=== PATIENT | female | born 1995 | race Two or more races ===

== ENCOUNTER 2017-01-11 09:03 | Day surgery (SDC) | payer BC ==
[~2017-01-11] VITALS: Ht 152.4 cm; Wt 52.0 kg
[~2017-01-11 09:03] MED LIST: ALBUTEROL17 G1 IH; CLARITIN PO; DEPO-PROVER150 MG/ML IM; FLOVENT 11120 INHALA IH; FOCALIN XR20 MG PO; MOTRIN600 MG PO; ORTHO-CYCLEN1 EACH PO; PROVENTIL,2.5 MG/0.5 IH; VENTOLIN HFA18 GM IH; ZOFRAN ODT4 MG PO; predniSONE PO
[2017-01-11 09:24] VITALS: BP 120/78
[2017-01-11] MEDS ORDERED: PERCOCET 5/31 TABLET PO (12:24)
[2017-01-11 13:10] VITALS: BP 123/84
[2017-01-11 14:15] VITALS: BP 117/71
== END 2017-01-11 14:15 | disposition home or self-care (01) ==
LOC: SDC 09:03
PROC: 0FT44ZZ Resection of Gallbladder, Percutaneous Endoscopic Approach (ICD-10-PCS; principal; 2017-01-11)
DX: K81.1 Chronic cholecystitis (principal); J45.909 Unspecified asthma, uncomplicated; F90.1 Attention-deficit hyperactivity disorder, predominantly hyperactive type; Z87.891 Personal history of nicotine dependence; Z88.0 Allergy status to penicillin
CPT/HCPCS: 88304; J0330; J0690; J1100; J1170; J1885; J2250; J2405; J2710; J3010

== ENCOUNTER 2017-05-16 08:39 | Emergency (ER) | payer BC ==
[~2017-05-16] VITALS: Ht 152.4 cm; Wt 51.6 kg
[~2017-05-16 08:39] MED LIST changes: +PERCOCET 5/31 TABLET PO
[2017-05-16 09:21] LABS: ADD MIUA? YES; BILIRUBIN NEGATIVE; BLOOD LARGE; COLOR YELLOW ((YELLOW)); GLUCOSE (STRIP) NEGATIVE; KETONES 5; LEUKOCYTES NEGATIVE; NITRITE NEGATIVE; PROTEIN (STRIP) 100; UROBILINOGEN 0.2 MG/DL (0.2-1.0)
[2017-05-16 09:44] LABS: BACTERIA NONE SEEN /HPF; EPITHELIAL CELLS 1+ /HPF; MUCUS 1+ /LPF; RED BLOOD CELLS TNTC /HPF (0-5); WHITE BLOOD CELLS RARE /HPF (0-5)
[2017-05-16 09:49] LABS: EOSINOPHIL (%) 0.6 % (0-5); EOSINOPHIL COUNT 0.1 K/uL (0-0.3); HEMATOCRIT 39.4 % (36.0-46.0); IMMATURE GRANULOCYTE (%) 0.6 % (0.0-0.7); IMMATURE GRANULOCYTE COUNT 0.1 K/uL; INSTRUMENT ABS NEUTROPHIL CT 9.6 K/uL; LYMPHOCYTE COUNT 1.4 K/uL (1.0-2.8); MCH 30.2 PG (29.0-34.0); MCHC 33.8 G/DL (30.0-36.0); MCV 89.3 FL (83-99); MEAN PLAT.VOLUME 11.7 uM^3 (9.5-12.4); MONOCYTE (%) 3.9 % (3-12); MONOCYTE COUNT 0.5 K/uL (0-0.8); NEUTROPHIL (%) 82.3 % (45-76); NEUTROPHIL COUNT 9.6 K/uL (1.8-6.4); PLATELET COUNT 171 K/uL (156-360); RBC DIS.WIDTH-CV 11.9 % (11.8-14.6); RED BLOOD COUNT 4.41 M/uL (3.80-5.20); WHITE BLOOD COUNT 11.7 K/uL (4.1-10.2)
[2017-05-16 09:58] LABS: CHLORIDE 110 mEq/L (99-109); POTASSIUM 3.4 mEq/L (3.7-5.4); SODIUM 143 mEq/L (136-147)
[2017-05-16 10:00] LABS: GLUCOSE 93 mg/dL (70-99)
[2017-05-16 10:01] LABS: ANION GAP 13 MEQ/L (2-14)
[2017-05-16 10:02] LABS: TOTAL BILIRUBIN 0.6 mg/dL (0.0-1.0)
[2017-05-16 10:04] LABS: ALKALINE PHOSPHATASE 43 IU/L (3-129); GFR ESTIMATE (CALCULATED) > 59 mL/min/
[2017-05-16 10:05] LABS: UREA NITROGEN (BUN) 12 mg/dL (9-23)
[2017-05-16 10:07] LABS: LIPASE 14 U/L (1.0-51.0)
[2017-05-16 10:14] LABS: QUANTITATIVE HCG < 4.0 MIU/ML
[2017-05-16] MEDS ORDERED: PERCOCET 5/31 TABLET PO (12:13)
[2017-05-16] MEDS ORDERED: ZOFRAN4 MG PO (12:13)
[2017-05-16 12:26] VITALS: BP 112/72
== END 2017-05-16 12:27 | disposition home or self-care (01) ==
LOC: EME 08:39
PROVIDERS: Emergency Medicine
DX: R10.9 Unspecified abdominal pain (principal); R11.2 Nausea with vomiting, unspecified; F90.9 Attention-deficit hyperactivity disorder, unspecified type; Z90.49 Acquired absence of other specified parts of digestive tract; Z88.0 Allergy status to penicillin; Z88.8 Allergy status to other drugs, medicaments and biological substances; Z87.891 Personal history of nicotine dependence
CPT/HCPCS: 74176; 80053; 81003; 83690; 84702; 85025; 99281; 99285; J2270; J2405; J7030

== ENCOUNTER 2017-06-26 11:22 | Emergency (ER) | payer BC ==
[~2017-06-26] VITALS: Ht 157.5 cm; Wt 53.5 kg
[~2017-06-26 11:22] MED LIST changes: +ZOFRAN4 MG PO
[2017-06-26 12:10] LABS: HEMATOCRIT 44.9 % (36.0-46.0); MCH 30.9 PG (29.0-34.0); MCHC 34.7 G/DL (30.0-36.0); MCV 88.9 FL (83-99); RBC DIS.WIDTH-CV 12.4 % (11.8-14.6); RBC DIS.WIDTH-SD 40.4 % (39-53); RED BLOOD COUNT 5.05 M/uL (3.80-5.20); WHITE BLOOD COUNT 12.7 K/uL (4.1-10.2)
[2017-06-26 12:22] LABS: CHLORIDE 109 mEq/L (99-109); POTASSIUM 4.2 mEq/L (3.7-5.4); SODIUM 139 mEq/L (136-147)
[2017-06-26 12:24] LABS: GLUCOSE 84 mg/dL (70-99)
[2017-06-26 12:25] LABS: ANION GAP 9 MEQ/L (2-14)
[2017-06-26 12:26] LABS: MEAN PLAT.VOLUME 11.5 uM^3 (9.5-12.4); PLATELET COUNT 216 K/uL (156-360); TOTAL BILIRUBIN 0.8 mg/dL (0.0-1.0)
[2017-06-26 12:27] LABS: ALKALINE PHOSPHATASE 46 IU/L (3-129)
[2017-06-26 12:28] LABS: GFR ESTIMATE (CALCULATED) > 59 mL/min/
[2017-06-26 12:29] LABS: UREA NITROGEN (BUN) 13 mg/dL (9-23)
[2017-06-26 12:32] LABS: QUANTITATIVE HCG < 4.0 MIU/ML
[2017-06-26 13:23] LABS: ADD MIUA? YES; BILIRUBIN NEGATIVE; BLOOD NEGATIVE; COLOR YELLOW ((YELLOW)); GLUCOSE (STRIP) NEGATIVE; KETONES NEGATIVE; LEUKOCYTES NEGATIVE; NITRITE NEGATIVE; PROTEIN (STRIP) NEGATIVE; SPECIFIC GRAVITY 1.019 (1.000-1.030); UROBILINOGEN 0.2 MG/DL (0.2-1.0)
[2017-06-26 13:25] LABS: BACTERIA RARE /HPF; EPITHELIAL CELLS 1+ /HPF; MUCUS 1+ /LPF; RED BLOOD CELLS 0-5 /HPF (0-5); UCUL ADDED? NO; WHITE BLOOD CELLS 0-5 /HPF (0-5)
[2017-06-26] MEDS ORDERED: PULMICORT FLE180 MCG IH (14:54)
[2017-06-26] MEDS ORDERED: VENTOLIN HFA18 GM IH (14:54)
[2017-06-26 15:10] VITALS: BP 113/74
== END 2017-06-26 15:11 | disposition home or self-care (01) ==
LOC: EME 11:22
DX: R07.89 Other chest pain (principal); R10.9 Unspecified abdominal pain; J45.909 Unspecified asthma, uncomplicated; G43.909 Migraine, unspecified, not intractable, without status migrainosus; F90.2 Attention-deficit hyperactivity disorder, combined type; Z88.0 Allergy status to penicillin; Z88.8 Allergy status to other drugs, medicaments and biological substances; Z87.891 Personal history of nicotine dependence
CPT/HCPCS: 71020; 80053; 81003; 84702; 85027; 94640; 99281; 99284

== ENCOUNTER 2017-09-11 16:39 | Emergency (ER) | payer BC ==
[~2017-09-11] VITALS: Ht 152.4 cm; Wt 56.5 kg
[~2017-09-11 16:39] MED LIST changes: +PULMICORT FLE180 MCG IH
[2017-09-11 17:42] LABS: MCH 30.7 PG (29.0-34.0); MCHC 34.9 G/DL (30.0-36.0); MCV 88.1 FL (83-99); RBC DIS.WIDTH-CV 12.6 % (11.8-14.6); RED BLOOD COUNT 4.88 M/uL (3.80-5.20)
[2017-09-11 17:52] LABS: ALBUMIN 4.5 g/dL (3.2-4.8)
[2017-09-11 17:53] LABS: CHLORIDE 108 mEq/L (99-109); POTASSIUM 4.2 mEq/L (3.7-5.4); SODIUM 141 mEq/L (136-147)
[2017-09-11 17:55] LABS: GLUCOSE 106 mg/dL (70-99); TOTAL PROTEIN 7.9 g/dL (6.4-8.3)
[2017-09-11 17:57] LABS: TOTAL BILIRUBIN 0.8 mg/dL (0.0-1.0)
[2017-09-11 17:58] LABS: ALKALINE PHOSPHATASE 57 IU/L (3-129)
[2017-09-11 17:59] LABS: CREATININE 0.8 mg/dL (0.6-1.3); GFR ESTIMATE (CALCULATED) > 59 mL/min/
[2017-09-11 18:00] LABS: AST (GOT) 52 IU/L (2-34); UREA NITROGEN (BUN) 20 mg/dL (9-23)
[2017-09-11 18:02] LABS: ALT (GPT) 89 IU/L (3-49)
[2017-09-11 18:07] LABS: QUANTITATIVE HCG < 4.0 MIU/ML
[2017-09-11 18:24] LABS: PLAT.SUFFICIENCY ADEQUATE; PLATELET COUNT 232 K/uL (156-360)
[2017-09-11 19:28] LABS: APPEARANCE SL.HAZY ((CLEAR)); BILIRUBIN NEGATIVE; BLOOD NEGATIVE; COLOR YELLOW ((YELLOW)); GLUCOSE (STRIP) NEGATIVE; KETONES 20; LEUKOCYTES TRACE; NITRITE NEGATIVE; PROTEIN (STRIP) 30; SPECIFIC GRAVITY 1.027 (1.000-1.030); UROBILINOGEN 0.2 MG/DL (0.2-1.0)
[2017-09-11 19:45] LABS: BACTERIA NONE SEEN /HPF; EPITHELIAL CELLS RARE /HPF; MUCUS 2+ /LPF; RED BLOOD CELLS 0-5 /HPF (0-5); UCUL ADDED? NO; WHITE BLOOD CELLS 0-5 /HPF (0-5)
[2017-09-11 22:26] VITALS: BP 122/67
== END 2017-09-11 22:27 | disposition home or self-care (01) ==
LOC: EME 16:39
DX: R10.9 Unspecified abdominal pain (principal); G43.909 Migraine, unspecified, not intractable, without status migrainosus; J45.909 Unspecified asthma, uncomplicated; F90.9 Attention-deficit hyperactivity disorder, unspecified type; Z87.891 Personal history of nicotine dependence; Z88.0 Allergy status to penicillin; Z88.8 Allergy status to other drugs, medicaments and biological substances
CPT/HCPCS: 80053; 81003; 84702; 85027; 99281; 99283; J1885; J2405; J7030

== ENCOUNTER 2017-10-21 06:12 | Emergency (ER) | payer BC ==
[~2017-10-21] VITALS: Ht 152.4 cm; Wt 60.5 kg
[2017-10-21] MEDS ORDERED: FLEXERIL10 MG PO (09:37)
[2017-10-21 09:49] VITALS: BP 144/91
== END 2017-10-21 09:50 | disposition home or self-care (01) ==
LOC: EME 06:12
DX: S00.93XA Contusion of unspecified part of head, initial encounter (principal); S16.1XXA Strain of muscle, fascia and tendon at neck level, initial encounter; Y04.2XXA Assault by strike against or bumped into by another person, initial encounter; Y92.009 Unspecified place in unspecified non-institutional (private) residence as the place of occurrence of the external cause; G43.909 Migraine, unspecified, not intractable, without status migrainosus; F90.9 Attention-deficit hyperactivity disorder, unspecified type; Z87.891 Personal history of nicotine dependence; Z90.49 Acquired absence of other specified parts of digestive tract; Z88.0 Allergy status to penicillin; Z88.8 Allergy status to other drugs, medicaments and biological substances
CPT/HCPCS: 70360; 70450; 99281; 99284

== ENCOUNTER 2017-12-23 08:49 | Emergency (ER) | payer BC ==
[~2017-12-23] VITALS: Ht 152.4 cm; Wt 61.5 kg
[~2017-12-23 08:49] MED LIST changes: +FLEXERIL10 MG PO
[2017-12-23 09:58] LABS: BASOPHIL (%) 0.7 % (0-1); BASOPHIL COUNT 0.1 K/uL (0-0.1); EOSINOPHIL (%) 1.3 % (0-5); EOSINOPHIL COUNT 0.2 K/uL (0-0.3); HEMATOCRIT 45.5 % (36.0-46.0); HEMOGLOBIN 16.4 G/DL (11.9-15.5); IMMATURE GRANULOCYTE (%) 0.2 % (0.0-0.7); LYMPHOCYTE (%) 14.7 % (15-42); LYMPHOCYTE COUNT 1.8 K/uL (1.0-2.8); MCH 30.7 PG (29.0-34.0); MCV 85.2 FL (83-99); MONOCYTE (%) 4.3 % (3-12); MONOCYTE COUNT 0.5 K/uL (0-0.8); NEUTROPHIL (%) 78.8 % (45-76); NEUTROPHIL COUNT 9.5 K/uL (1.8-6.4); PLATELET COUNT 289 K/uL (156-360); RBC DIS.WIDTH-SD 37.2 % (39-53); RED BLOOD COUNT 5.34 M/uL (3.80-5.20)
[2017-12-23 10:00] LABS: ALBUMIN 4.8 g/dL (3.2-4.8)
[2017-12-23 10:01] LABS: CHLORIDE 110 mEq/L (99-109); POTASSIUM 4.1 mEq/L (3.7-5.4); SODIUM 141 mEq/L (136-147)
[2017-12-23 10:03] LABS: GLUCOSE 113 mg/dL (70-99); TOTAL PROTEIN 8.2 g/dL (6.4-8.3)
[2017-12-23 10:05] LABS: TOTAL BILIRUBIN 1.1 mg/dL (0.0-1.0)
[2017-12-23 10:06] LABS: ALKALINE PHOSPHATASE 70 IU/L (3-129)
[2017-12-23 10:07] LABS: CREATININE 0.8 mg/dL (0.6-1.3); GFR ESTIMATE (CALCULATED) > 59 mL/min/
[2017-12-23 10:08] LABS: AST (GOT) 186 IU/L (2-34); UREA NITROGEN (BUN) 8 mg/dL (9-23)
[2017-12-23 10:09] LABS: ALT (GPT) 154 IU/L (3-49)
[2017-12-23 10:10] LABS: LIPASE 12 U/L (1.0-51.0)
[2017-12-23 10:16] LABS: QUANTITATIVE HCG < 4.0 MIU/ML
[2017-12-23 12:27] LABS: APPEARANCE CLEAR ((CLEAR)); BILIRUBIN NEGATIVE; BLOOD NEGATIVE; COLOR STRAW ((YELLOW)); GLUCOSE (STRIP) NEGATIVE; KETONES 5; LEUKOCYTES NEGATIVE; NITRITE NEGATIVE; PROTEIN (STRIP) NEGATIVE; UCUL ADDED? NO; UROBILINOGEN 0.2 MG/DL (0.2-1.0)
[2017-12-23 12:29] LABS: SPECIFIC GRAVITY > 1.060 (1.000-1.030)
[2017-12-23] MEDS ORDERED: ZOFRAN ODT4 MG PO (13:15)
[2017-12-23] MEDS ORDERED: FLAGYL500 MG PO (13:15)
[2017-12-23] MEDS ORDERED: CIPRO500 MG PO (13:15)
[2017-12-23] MEDS ORDERED: PERCOCET 5/31 TABLET PO (13:15)
[2017-12-23 13:30] VITALS: BP 131/87
== END 2017-12-23 13:30 | disposition home or self-care (01) ==
LOC: EME 08:49
PROVIDERS: Emergency Medicine
DX: K52.9 Noninfective gastroenteritis and colitis, unspecified (principal); E86.0 Dehydration; R74.8 Abnormal levels of other serum enzymes; F90.9 Attention-deficit hyperactivity disorder, unspecified type; Z79.3 Long term (current) use of hormonal contraceptives; Z87.891 Personal history of nicotine dependence; Z88.0 Allergy status to penicillin; Z88.8 Allergy status to other drugs, medicaments and biological substances
CPT/HCPCS: 74177; 80053; 81003; 83690; 84702; 85025; 99281; 99284; J2405; J7030

== ENCOUNTER 2017-12-31 11:29 | Emergency (ER) | payer BC ==
[~2017-12-31] VITALS: Ht 152.4 cm; Wt 54.5 kg
[~2017-12-31 11:29] MED LIST changes: +CIPRO500 MG PO; +FLAGYL500 MG PO
[2017-12-31 12:12] LABS: ALBUMIN 4.7 g/dL (3.2-4.8)
[2017-12-31 12:13] LABS: CHLORIDE 105 mEq/L (99-109); POTASSIUM 4.1 mEq/L (3.7-5.4); SODIUM 137 mEq/L (136-147)
[2017-12-31 12:14] LABS: HEMATOCRIT 49.2 % (36.0-46.0); HEMOGLOBIN 16.9 G/DL (11.9-15.5); MCH 30.9 PG (29.0-34.0); MCHC 34.3 G/DL (30.0-36.0); RBC DIS.WIDTH-CV 12.5 % (11.8-14.6); RED BLOOD COUNT 5.47 M/uL (3.80-5.20); WHITE BLOOD COUNT 18.6 K/uL (4.1-10.2)
[2017-12-31 12:15] LABS: GLUCOSE 91 mg/dL (70-99); TOTAL PROTEIN 8.4 g/dL (6.4-8.3)
[2017-12-31 12:16] LABS: MCV 89.9 FL (83-99)
[2017-12-31 12:17] LABS: TOTAL BILIRUBIN 0.9 mg/dL (0.0-1.0)
[2017-12-31 12:18] LABS: ALKALINE PHOSPHATASE 62 IU/L (3-129); CREATININE 0.8 mg/dL (0.6-1.3); GFR ESTIMATE (CALCULATED) > 59 mL/min/
[2017-12-31 12:20] LABS: AST (GOT) 38 IU/L (2-34); UREA NITROGEN (BUN) 12 mg/dL (9-23)
[2017-12-31 12:21] LABS: ALT (GPT) 93 IU/L (3-49)
[2017-12-31 12:27] LABS: QUANTITATIVE HCG < 4.0 MIU/ML
[2017-12-31 12:59] LABS: PLAT.SUFFICIENCY ADEQUATE; PLATELET COUNT 247 K/uL (156-360)
[2017-12-31 13:05] LABS: LIPASE 31 U/L (1.0-51.0)
[2017-12-31 13:42] LABS: APPEARANCE CLOUDY ((CLEAR)); BILIRUBIN NEGATIVE; BLOOD SMALL; COLOR YELLOW ((YELLOW)); GLUCOSE (STRIP) NEGATIVE; KETONES 5; LEUKOCYTES MODERATE; NITRITE NEGATIVE; PROTEIN (STRIP) NEGATIVE; SPECIFIC GRAVITY 1.021 (1.000-1.030); UROBILINOGEN 0.2 MG/DL (0.2-1.0)
[2017-12-31 13:49] LABS: BACTERIA NONE SEEN /HPF; EPITHELIAL CELLS 2+ /HPF; MUCUS 4+ /LPF; RED BLOOD CELLS 0-5 /HPF (0-5); UCUL ADDED? NO; WHITE BLOOD CELLS 0-5 /HPF (0-5)
[2017-12-31 16:35] LABS: HEMATOCRIT 43.6 % (36.0-46.0); HEMOGLOBIN 15.1 G/DL (11.9-15.5); MCH 30.8 PG (29.0-34.0); MCHC 34.2 G/DL (30.0-36.0); MCV 90.3 FL (83-99); PLATELET COUNT 185 K/uL (156-360); RBC DIS.WIDTH-CV 12.3 % (11.8-14.6); RBC DIS.WIDTH-SD 40.8 % (39-53); RED BLOOD COUNT 4.83 M/uL (3.80-5.20); WHITE BLOOD COUNT 12.6 K/uL (4.1-10.2)
[2017-12-31] MEDS ORDERED: REGLAN5 MG PO (17:53)
[2017-12-31 17:58] VITALS: BP 122/83
== END 2017-12-31 18:05 | disposition home or self-care (01) ==
LOC: EME 11:29
PROVIDERS: Physician Assistant
DX: K52.9 Noninfective gastroenteritis and colitis, unspecified (principal); J45.909 Unspecified asthma, uncomplicated; F90.9 Attention-deficit hyperactivity disorder, unspecified type; Z90.49 Acquired absence of other specified parts of digestive tract; Z87.891 Personal history of nicotine dependence; Z88.0 Allergy status to penicillin; Z88.8 Allergy status to other drugs, medicaments and biological substances
CPT/HCPCS: 74177; 80053; 81003; 83605; 83630; 83690; 84702; 85027; 87493; 87506; 99281; 99285; J1200; J2405; J2765; J3010; J7030

== ENCOUNTER 2018-02-11 13:16 | Emergency (ER) | payer BC ==
[~2018-02-11] VITALS: Ht 152.4 cm; Wt 51.8 kg
[~2018-02-11 13:16] MED LIST changes: +REGLAN5 MG PO
[2018-02-11 14:20] LABS: APPEARANCE CLEAR ((CLEAR)); BILIRUBIN NEGATIVE; BLOOD NEGATIVE; COLOR YELLOW ((YELLOW)); GLUCOSE (STRIP) NEGATIVE; KETONES 20; LEUKOCYTES NEGATIVE; NITRITE NEGATIVE; PROTEIN (STRIP) 30; SPECIFIC GRAVITY 1.019 (1.000-1.030); UROBILINOGEN 0.2 MG/DL (0.2-1.0)
[2018-02-11 14:20] LABS: HEMATOCRIT 42.5 % (36.0-46.0); HEMOGLOBIN 15.1 G/DL (11.9-15.5); MCH 30.6 PG (29.0-34.0); MCHC 35.5 G/DL (30.0-36.0); RBC DIS.WIDTH-CV 12.4 % (11.8-14.6); RBC DIS.WIDTH-SD 38.9 % (39-53); RED BLOOD COUNT 4.94 M/uL (3.80-5.20); WHITE BLOOD COUNT 7.7 K/uL (4.1-10.2)
[2018-02-11 14:26] LABS: ALBUMIN 4.8 g/dL (3.2-4.8); CHLORIDE 111 mEq/L (99-109); SODIUM 144 mEq/L (136-147)
[2018-02-11 14:28] LABS: GLUCOSE 83 mg/dL (70-99); TOTAL PROTEIN 8.4 g/dL (6.4-8.3)
[2018-02-11 14:30] LABS: TOTAL BILIRUBIN 0.9 mg/dL (0.0-1.0)
[2018-02-11 14:33] LABS: ALKALINE PHOSPHATASE 71 IU/L (3-129); CREATININE 0.8 mg/dL (0.6-1.3); GFR ESTIMATE (CALCULATED) > 59 mL/min/; UREA NITROGEN (BUN) 12 mg/dL (9-23)
[2018-02-11 14:34] LABS: AST (GOT) 258 IU/L (2-34)
[2018-02-11 14:35] LABS: ALT (GPT) 259 IU/L (3-49)
[2018-02-11 14:42] LABS: SERUM ETHYL ALCOHOL < 10 mg/dL
[2018-02-11 14:43] LABS: QUANTITATIVE HCG < 4.0 MIU/ML
[2018-02-11 14:53] LABS: PLAT.SUFFICIENCY ADEQUATE; PLATELET COUNT 215 K/uL (156-360)
[2018-02-11 15:04] LABS: LIPASE 15 U/L (1.0-51.0)
[2018-02-11] MEDS ORDERED: PROMETHAZINE HC25 M1 PO (16:43)
[2018-02-11] MEDS ORDERED: BENTYL10 MG PO (16:43)
[2018-02-11 16:58] VITALS: BP 122/76
== END 2018-02-11 16:58 | disposition home or self-care (01) ==
LOC: RME 13:16 → EME 13:16 → RME 16:58
PROVIDERS: Nurse Practitioner Family
DX: R10.9 Unspecified abdominal pain (principal); R11.2 Nausea with vomiting, unspecified; R79.89 Other specified abnormal findings of blood chemistry; M54.5 Low back pain; J45.909 Unspecified asthma, uncomplicated; Z90.49 Acquired absence of other specified parts of digestive tract; Z87.891 Personal history of nicotine dependence
CPT/HCPCS: 74177; 80053; 81003; 83690; 84702; 85027; 99281; 99284; G0480; J2405; J7030; Q0169